=== PATIENT | female | born 1950 | race Caucasian/White ===

== ENCOUNTER → 2018-07-19 10:58 | Outpatient (BNVA) | payer MEDICARE, BC, SELFPAY | PROVIDERS: Visit Provider Orthopaedic Surgery | DX: M17.11 Unilateral primary osteoarthritis, right knee (principal); I10 Essential (primary) hypertension | CPT/HCPCS: 20610; 99211; 99213; J7325 ==

== ENCOUNTER → 2018-10-27 09:58 | Outpatient (BNVA) | payer MEDICARE, BC, SELFPAY | PROVIDERS: PCP Family Medicine; Referring Provider Family Medicine; Visit Provider Orthopaedic Surgery | DX: M17.11 Unilateral primary osteoarthritis, right knee (principal); I10 Essential (primary) hypertension | CPT/HCPCS: 20610; 99211; 99213; J1040 ==

== ENCOUNTER → 2019-01-26 09:57 | Outpatient (BNVA) | payer MEDICARE, BC, SELFPAY | PROVIDERS: PCP Family Medicine; Referring Provider Family Medicine; Visit Provider Orthopaedic Surgery | DX: M17.11 Unilateral primary osteoarthritis, right knee (principal) | CPT/HCPCS: 20610; 99211; 99212; J7325 ==

== ENCOUNTER 2019-02-21 01:43 | Outpatient (CLI) | payer MEDICARE, BC, SELFPAY ==
[2019-02-21 13:32] LABS: Abs Immature Grans 0.02 k/cumm (0.0-0.09); Absolute Basophil Count 0.03 k/cumm (0.0-0.2); Absolute Lymphocyte Count 1.96 k/cumm (1.2-3.4); Absolute Monocyte Count 0.49 k/cumm (0.11-0.7); Absolute Neutrophil Count 4.15 k/cumm (1.2-6.7); Basophils % 0.4; Eosinophils % 4.3; HCT 37.1 % (36.0-46.0); HGB 12.1 g/dL (12.0-15.5); Immature Grans % 0.3; Lymphocytes % 28.2; Mean Corp. HGB Concentration 32.6 g/dL (32.0-36.0); Mean Corpuscular Volume 92.1 fL (80-95); Mean Platelet Volume 9.4 fL (8.0-11.0); Monocytes % 7.1; Neutrophils % 59.7; Platelet Count 287 x1000/uL (130-400); RBC 4.03 m/cumm (4.00-5.20); White Blood Cell Count 6.95 k/cumm (4.4-10.8)
[2019-02-21 13:33] LABS: ALT 21 U/L (12-78); AST 15 U/L (15-37); Albumin 3.8 g/dL (3.4-5.0); Alkaline Phosphatase 68 U/L (46-116); Anion Gap 10.6 mmol/L (3-11); BUN 22 mg/dL (7-18); Bilirubin, Total 1.4 mg/dL (0.2-1.0); CO2 27.4 mmol/L (21.0-32.0); CREATININE 1.05 mg/dL (0.55-1.02); Calcium 9.1 mg/dL (8.5-10.1); Chloride 104 mmol/L (98-107); Cholesterol 208 mg/dL (50-200); Estimated GFR 52.28 (mL/min/1.73m2); Glucose 91 mg/dL (70-100); HDL Cholesterol 44 mg/dL (40-60); LDL CHOLESTEROL 137 mg/dL (<100); Potassium 3.5 mmol/L (3.5-5.1); Sodium 142 mmol/L (136-145); Total Protein 6.7 g/dL (6.4-8.2); Triglyceride 165 mg/dL (30-150)
== END 2019-02-21 02:03 ==
PROVIDERS: PCP Family Medicine; Visit Provider Family Medicine
DX: E78.5 Hyperlipidemia, unspecified (principal); I10 Essential (primary) hypertension
CPT/HCPCS: 36415; 80053; 80061; 83721; 85025

== ENCOUNTER 2019-02-22 01:17 | Outpatient (CLI) | payer MEDICARE, BC, SELFPAY ==
--- NOTE | 2019-02-22 12:49 | DI.US_ITS ---
SYMPTOMS/DIAGNOSIS: BILATERAL ADNEXAL MASSES ON CT, 04/14/17, PELVIC AND PERINEAL PAIN, BILATERAL CRAMPINESS X 3 MOS, S/P HYSTERECTOMY AND TUBAL LIGATION, HYPERLIPIDEMIA, R10.2 N94.9, E78.5 PELVIC ULTRASOUND: Transabdominal and transvaginal examination was performed. Comparison CT scan is 04/14/17. The patient is status post hysterectomy. In the right adnexa, there is a 6.7 x 4.7 x 4.6 cm lesion. The lesion appears multicystic. There does appear to be some internal debris. No internal blood flow is noted. In the left adnexa, there is a 3 x 3 x 3.1 cm complex lesion. The lesion is mostly cystic. No internal blood flow is appreciated. No free pelvic fluid or hydronephrosis is identified. IMPRESSION: Complex bilateral adnexal lesions. These may be ovarian in origin, but other cystic lesions cannot be excluded. An MRI of the pelvis with and without contrast is recommended for further evaluation.
== END 2019-02-22 01:37 ==
PROVIDERS: PCP Family Medicine; Visit Provider Family Medicine
DX: R10.2 Pelvic and perineal pain (principal); N94.9 Unspecified condition associated with female genital organs and menstrual cycle; N83.8 Other noninflammatory disorders of ovary, fallopian tube and broad ligament; Z90.710 Acquired absence of both cervix and uterus; Z98.51 Tubal ligation status
CPT/HCPCS: 76830; 76856

== ENCOUNTER → 2019-05-02 10:03 | Outpatient (BNVA) | payer MEDICARE, BC, SELFPAY | PROVIDERS: PCP Family Medicine; Referring Provider Family Medicine; Visit Provider Orthopaedic Surgery | DX: M17.11 Unilateral primary osteoarthritis, right knee (principal); I10 Essential (primary) hypertension | CPT/HCPCS: 20610; 99211; 99213; J1040 ==

== ENCOUNTER → 2019-07-31 09:52 | Outpatient (BNVA) | payer MEDICARE, BC, SELFPAY | PROVIDERS: PCP Family Medicine; Referring Provider Family Medicine; Visit Provider Student in an Organized Health Care Education/Training Program | DX: M17.12 Unilateral primary osteoarthritis, left knee (principal); M17.11 Unilateral primary osteoarthritis, right knee; I10 Essential (primary) hypertension | CPT/HCPCS: 20610; 99213; J7325 ==

== ENCOUNTER 2019-08-30 02:42 | Outpatient (CLI) | payer MEDICARE, BC, SELFPAY ==
[2019-08-30 13:11] LABS: ALT 20 U/L (14-59); Calculated LDL 116 mg/dL; Cholesterol 193 mg/dL (50-200); HDL Cholesterol 42 mg/dL (40-60); Triglyceride 175 mg/dL (30-150)
== END 2019-08-30 03:02 ==
PROVIDERS: PCP Family Medicine; Visit Provider Family Medicine
DX: I10 Essential (primary) hypertension (principal); E78.5 Hyperlipidemia, unspecified
CPT/HCPCS: 36415; 80061; 84460

== ENCOUNTER → 2019-11-06 09:25 | Outpatient (BNVA) | payer MEDICARE, BC, SELFPAY | PROVIDERS: PCP Family Medicine; Referring Provider Family Medicine; Visit Provider Student in an Organized Health Care Education/Training Program | DX: M17.12 Unilateral primary osteoarthritis, left knee (principal) | CPT/HCPCS: 99213 ==

== ENCOUNTER 2019-12-06 08:25 | Outpatient (CLI) | payer MEDICARE, BC, SELFPAY ==
--- NOTE | 2019-12-06 08:30 | DI.RAD_ITS ---
EXAM: XR STANDING ALIGNMENT INDICATION: R knee OA - TKA planning. COMPARISON: No exams were available for comparison TECHNIQUE: 2D digital imaging was performed. FINDINGS: The hip joint spaces are well maintained. There is mild acetabular spurring. There are severe degen erative changes of the knees, right greater than left. There is hardware in the left ankle. Venous varicosities are noted bilaterally, right greater than left. There is minimal leg length discrepancy , the left iliac crest projecting slightly higher than right. IMPRESSION: Degenerative changes both knees, right greater than left.
== END 2019-12-06 08:45 ==
PROVIDERS: PCP Family Medicine; Visit Provider Physician Assistant
DX: M17.0 Bilateral primary osteoarthritis of knee (principal); M21.70 Unequal limb length (acquired), unspecified site
CPT/HCPCS: 77073

== ENCOUNTER 2019-12-06 08:54 | Outpatient (CLI) | payer MEDICARE, BC, SELFPAY ==
[2019-12-06 10:14] LABS: HCT 40.3 % (36.0-46.0); HGB 13.2 g/dL (12.0-15.5); Mean Corp. HGB Concentration 32.8 g/dL (32.0-36.0); Mean Corpuscular Hemoglobin 29.9 pg (27.0-33.0); Mean Corpuscular Volume 91.4 fL (80-95); Mean Platelet Volume 8.9 fL (8.0-11.0); Platelet Count 315 x1000/uL (130-400); RBC 4.41 m/cumm (4.00-5.20); RBC Distribution Width 13.6 % (11.7-14.6); White Blood Cell Count 8.81 k/cumm (4.4-10.8)
[2019-12-06 11:00] LABS: Anion Gap 11.1 mmol/L (3-11); BUN 19 mg/dL (7-18); CO2 27.9 mmol/L (21.0-32.0); CREATININE 1.13 mg/dL (0.55-1.02); Calcium 8.9 mg/dL (8.5-10.1); Chloride 104 mmol/L (98-107); Estimated GFR 47.88 (mL/min/1.73m2); Glucose 92 mg/dL (74-106); Sodium 143 mmol/L (136-145)
== END 2019-12-06 09:14 ==
PROVIDERS: PCP Family Medicine; Visit Provider Student in an Organized Health Care Education/Training Program
DX: M25.561 Pain in right knee (principal); M17.11 Unilateral primary osteoarthritis, right knee; Z01.818 Encounter for other preprocedural examination; Z01.812 Encounter for preprocedural laboratory examination
CPT/HCPCS: 36415; 80048; 85027; 77073

== ENCOUNTER 2019-12-12 10:20 | Observation (INO) | payer MEDICARE, BC, SELFPAY ==
[2019-12-06 09:09] VITALS: BP 118/78; PULSE 90; RESP 17; TEMP 36.8; O2SAT 98
[2019-12-12] VITALS (10 sets, daily range): BP systolic 115–149; BP diastolic 63–91; PULSE 78–94; RESP 14–19; TEMP 36.4–36.7; O2SAT 92–100
[2019-12-12] MEDS: Acetaminophen 500 MG TAB 1000 MG PO ×2 (11:12→19:38)
[2019-12-12] MEDS: Gabapentin 300 MG CAP PO ×2 (11:13→22:20)
[2019-12-12] MEDS: Lactated Ringers 1,000 ML 80 ML IV ×2 (11:20→14:50)
[2019-12-12] MEDS: ceFAZolin 2 GM/50 ML BAG IVPB (11:55)
[2019-12-12] MEDS: Bupivacaine 0.25% Pres-Free 30 ML VIAL (13:15)
[2019-12-12] MEDS: Normal Saline 20 ML VIAL (13:15)
[2019-12-12] MEDS: Ketorolac 30 MG/ML VIAL (13:15)
--- NOTE | 2019-12-12 14:24 | ROE_ITS ---
Date of service: 12/12/19 Time of Service: 14:24 Operative Note Operative Note DATE OF PROCEDURE: 12/12/19 PRE-OP DIAGNOSIS: Right Knee Osteoarthritis POST-OP DIAGNOSIS: same PROCEDURE: Right Total Knee Replacement SURGEON: Richardson Steven CURRICULUM ADVISORY TEACHER: Timmy Gilliam CURRICULUM ADVISORY TEACHER: Leonarda Rm ANESTHESIA: regional and spinal ESTIMATED BLOOD LOSS: 300 PATHOLOGY: none sent TOURNIQUET TIME: 41 COMPLICATIONS: None Patient was transported to: PACU Patient's condition: stable Implants: 1. Depuy Attune Posterior Stabilized Femoral Component, Size 5 Narrow 2. Depuy Attune Fixed Platform Tibial Component, Size 3 3. Depuy Attune 5x7 Fixed, Stabilized Poly 4. Depuy Attune Patellar Component, Size 35 Indications: I have seen Jennifer in clinic for symptoms of RIGHT knee arthritis, confirmed with radiographic findings. Jennifer has exhausted nonoperative methods a nd was having significant limitations in daily function and desired better function and less pain. I discussed the technical details of a knee replacement. I explained the risks of the procedure to include, but not limited to, bleeding, infection, pain, stiffness, fracture, damage to nerves and vessels, damage to muscles and tendons, loosening, need for repeat procedure, blood clot and cardiopulmonary demise. Despite these risks, Jennifer elected to proceed. Findings: There was significant signs of arthritis throughout the knee. The lateral femur was hypoplastic. Procedure Description: Jennifer was greeted in the preoperative holding area where the correct side was identified and marked. The consent was reviewed with the patient and signed. The history and physical was updated. All questions were answered. Preoperative mediacations were administered: Acetaminophen 1000mg, Celebrex 400mg, and Gabapentin 300mg. An adductor canal block was then administered by the anesthesia team in the PACU. Jennifer was taken back to the operating room. A spinal anesthestic was then administered. The patient was placed into the supine position on the operating room table. A nonsterile tourniquet was placed high onto the leg but only used for cementing. Posts were placed for positioning during the procedure. All bony prominences were well padded. Prophylactic antibiotics in the form of Cefazolin were administered. 1g of Tranxemic Acid was given intravenously within 30 minutes of incision. The right leg was then prepped with Chloraprep and draped in a standard fashion with impervious stockinette. A second prep with Chloraprep was performed prior to application of Iodine impregnated skin pr otection. A timeout to confirm correct identity, side and site, procedure, allergies, anesthesia, and medical concerns was performed. With the knee in some flexion, a midline incision was made overlying the knee. Full thickness skin flaps were raised once the extensor mechanism was encountered. These were raised medially and laterally. Any bleeding was controlled with electrocautery. Once the extensor mechanism was fully exposed, a medial parapatellar arthrotomy was performed in a flexed position. All bleeding from the arthrotomy and the geniculate arteries was coagulated. A medial subperiosteal peel was performed with electrocautery to the midcoronal plane. The fat pad was removed while keeping the patellar tendon protected. The anterior distal femur synovium was removed for later visualization. The ACL and PCL were resected and the anterior horn of the lateral meniscus was transected. The knee was then flexed with the patella everted. Large osteophytes from the tibia were removed. Large osteophytes from the femur were removed. Using a step drill, and based on preoperative templating, the femoral canal was entered. This was done with a step drill without any difficulty. The intramedullary distal femoral cut guide was inserted, set to a 5 degree valgus cut and 9mm cut thickness. There was some hypoplasia of the lateral femoral condyle and any remnant cartilage of the medial femoral condyle was removed for appropriate thickness. The distal femoral cut guide was then held in position and pinned. With the soft tissues protected, the distal cut was performed. This was passed over a few times to ensure a planar cut. I then turned attention to the tibia. The extramedullary guide was placed onto the leg. The distal aspect was slid medial to adjust for position of center of ankle and stay in line with shaft of the tibia. Approximately 3-5 degrees of posterior slope was kept in the proximal cutting guide. The center of the guide was aligned with the PCL. The stylus was used to assess cut thickness. The medial side, most involved side, was set for a 4mm cut which corresponded to 8mm laterally. This was then held in position and pinned into place with 2 additional pins and a cross pin for stability. The medial and lateral collateral ligaments were protected and the cut was performed. With this completed, it was assessed and noted to be of appropriate dimensions. The guide was removed. A spacer block was inserted and the knee was brought into extension. The 6mm spacer block provided full extension, without hyperextension and with stability of both the medial and lateral collateral ligaments was assessed. The pins from the femur and the tibia were then removed. The distal femur was then sized. The anterior stylus was placed onto the lateral ridge of the anterior femur. This indicated a size 5 femur. The external rotation of the guide was adjusted to 3 degrees to match the epicondylar axis, perpendicular to Rosebud?s line. The 4-in-1 cutting guide was the placed. The posterior medial femur cut was evaluated and appeared of good thickness. The spacer block was inserted underneath the cutting guide and stability was confirmed in 90 degrees of flexion. An mayito wing was used to confirm appropriate position of the anterior cut to avoid notching. This cutting guide was ensured to be flush on the cut surface and then pinned into place with headed pins. While protecting the soft tissues, quad tendon, and collateral ligaments, the anterior and posterior cuts were performed with a saw. The central two pins were removed and the posterior and anterior chamfers were cut next. The notch-cutting guide was placed. This was pinned to lateralize the femoral component as much as possible while keeping it flush on the cut surface. This was then pinned into position. A reciprocating saw was used to make the notch cut. A rasp smoothed the cut surfaces. A trial posterior stabilized femoral component was then inserted, impacted down to the cut surfaces, and the lug holes were drilled. A provisional trial tibial component was placed and the knee was brought through range of motion. There was noted to be excellent extension and flexion. There was no significant instability. The patella was tracking without thumbs. The tibial cut surface was fully exposed. The medial and lateral menisci were removed. The tibia was then sized as a 3. The tibia had been previously marked during trialing to correspond to the center of the tibial component to help with rotation. The trial was aligned to this timmy, approximately rotated to the medial 1/3rd of the tibial tubercle. The trial was pinned into place. The tibia was prepared with a reamer and a keel punch. The knee was then brought into extension and the patella was measured as 23mm. Using the patellar clamp and cut guide, this was resected to a flat surface with at least 13mm of thickness remaining. The size 35 patella fit the best. This was oriented and then clamped into position. The lugs were drilled. The trial components were removed. The final components, except for the polyethylene were opened on the back table. The periosteal and capsular tissues, especially posteriorly, around the knee were then systematically injected with a periarticular cocktail consisting of 50cc 0.25% Marcaine, 30mg Ketorolac, 20cc of Exparal and 50cc of injectable saline. The tourniquet was then inflated to 275mmHg. The knee was thoroughly irrigated with a pulse lavage and dried. On the back table, with the implants opened, the cement was mixed. 2 batches of antibiotic laden cement were prepared with vacuum assistance. After the cement was ready a small amount was placed on to the back side of the tibial component at the keel. A small amount was placed onto the posterior flange of the femur. Cement was manual pressurized and impregnated into the cut surface of the tibia. The tibial component was then inserted into the cut surface and impacted into position. Excess cement was removed and the component was reimpacted. Again, excess cement was removed and our attention was then turned to the femur. The femoral cut surface was once again dried and cement was manually impacted into the cut surface. The femoral component was lined with the lug holes and impacted. Excess cement was removed. It was ensured to be down against the cut surface. The trial polyethylene was then inserted and the leg was brought out into full extension for the duration of the cement curing process, approximately 15min. The cement seemed to be setting up faster than usual, so I aborted cementing the patella with the initial batch and prepared a second batch of cement for the patella. Cement was then manually impacted into the cut surface of the patella and the patellar button was clamped into position and held. During the cement curing process attention was turned to the gutters of the knee and for all interfaces for any excess cement. While the cement was hardening, the knee was irrigated with Irrisept chlorhexadine solution. This was allowed to sit in the knee for 3 minutes. After the cement had finally cured, approximately 15min, the clamp was removed from the patella and the knee was taken through range of motion. A size 7mm polyethylene component provided the best range of motion and stability with less than 2mm gapping with medial and lateral stress and full extension without significant hyperextension. The patella was tracking with a no-thumbs technique. The trial poly was removed and once again the knee was checked for any loose, excess, or errant cement. The poly component was then inserted and impacted into position after cleaning and drying the tibial tray. The capsule was then reapproximated with a No. 1 Vicryl at multiple locations. The capsule was finally closed with a No. 2 Stratafix, barbed suture. The tourniquet was then released and the arthrotomy appeared watertight without significant bleeding. The second dosing of 1g TXA was started. Deep tissues were then reapproximated with 0 Vicryl and 2-0 Vicryl. The skin was closed with a running 3-0 Monocryl in a subcuticular fashion. This was reinforced with skin glue. A Mepilex silver dressing was applied along with a [id number] CHAVO wrap. A CryoCuff was applied. Jennifer was transferred to the hospital bed without difficulty an suffering no apparent complication. Jennifer has a good prognosis. Physical therapy will start today and without restrictions, weight-bearing as tolerated. Aspirin 81mg BID will be used for DVT prophylaxis.
[2019-12-12] MEDS: oxyCODONE 5 MG TAB PO (16:33)
--- NOTE | 2019-12-12 16:39 | IN_ITS ---
Date of service: 12/12/19 Time of Service: 15:55 PT Notes Physical Therapy Inpatient Initial Evaluation Date: 12/12/2019 Referring Doctor: Richardson Steven MD PT Orders: PT CONSULT: Status post Ortho surgery. Status post right TKA. Precautions: Fall. Standard. WBAT on right LE. Patient Profile/Admitting Diagnosis: Patient is a 69-year-old female with primary unilateral osteoarthritis of right knee status post right knee total arthroplasty on postoperative day 0. PMHX: Medical History Depressive disorder Diverticulosis Essential hypertension [place] syndrome Irritable colon Surgical History Abdominal hysterectomy Bilateral salpingectomy with oophorectomy Colonoscopy - IV Sedation (05/27/16) EGD - MAC (03/17/18) Extraction of cataract [facility]; 03/07/17 & 03/28/17 Fracture, Closed Treatment (~04/1998) leg Social History/Home Situation: Patient lives with in a private home with 4 steps to enter with a rail on both sides. She has another set of 15 steps down to their bedroom with a rail on the left going down. Patient is independent with all activities of daily living with out an assistive ambulatory device nor adaptive equipment. Equipment Owned/DME: Front-wheeled walker Subjective: Patient reports a dull ache on the right knee. She denies any numbness or tingling from her gluteal area down to the soles of her feet at time of evaluation. She denies any lightheadedness, headache, chest pain, and dizziness throughout all positional changes and gait activity. She states that she has not had any falls for the past 12 months. Objective: General Observation: Kincaid catheter in place. IV in the left UE. CHAVO wraps on left lower extremity. Mental Status: Alert and oriented x4 Pain: 5/10 on her right knee at rest and with movement ROM: Right Upper Extremity: Shoulder Flexion WFL. Shoulder abduction WFL. Elbow flexion WFL. Wrist flexion WFL. Opening and closing of hand WFL. Left Upper Extremity: Shoulder Flexion WFL. Shoulder abduction WFL. Elbow flexion WFL. Wrist flexion WFL. Opening and closing of hand WFL. Right Lower Extremity: Hip flexion WFL. Hip abduction WFL. Knee flexion -21 through 110 degrees. Knee extension -21 degrees ankle dorsiflexion WFL. Ankle plantarflexion WFL. Left Lower Extremity: Hip flexion WFL. Hip abduction WFL. Knee flexion WFL. Ankle dorsiflexion WFL. Ankle plantarflexion WFL. Strength: Right Upper Extremity: Shoulder flexors 5/5. Shoulder abductors 5/5. Elbow flexors 5/5. Elbow extensors 5/5. Rod Bending Machine Operator strong. Left Upper Extremity: Shoulder flexors 5/5. Shoulder abductors 5/5. Elbow flexors 5/5. Elbow extensors 5/5. Rod Bending Machine Operator strong. Right Lower Extremity: Hip flexors 4/5. Hip abductors 4/5. Knee flexors 3-/5. Knee extensors 3-/5. Ankle dorsiflexors 5/5. Ankle plantarflexors 5/5. Left Lower Extremity:Hip flexors 5/5. Hip abductors 5/5. Knee flexors 5/5. Knee extensors 5/5. Ankle dorsiflexors 5/5. Ankle plantarflexors 5/5. Sensation: Intact as to pain and pressure on bilateral lower extremities. Bed Mobility/Transfers: Rolling SBA Supine to sit SBA Sit to supine SBA Sit to stand CGA Stand to sit CGA Bed to chair CGA Chair to bed CGA Gait: Patient tolerated level surface ambulation of 200 feet using front wheeled walker with WBAT on the right LE requiring CGA assist of PT as well as wheelchair follow and IV pole management of FINISHED CLOTH CHECKER. Reciprocal step to gait pattern observed. Decreased rachele. Reported 5/10 pain on the right knee with weight bearing. Balance: Static Sitting: Normal Dynamic Sitting: Normal Static Standing: Fair Dynamic Standing: Fair Special Tests: Mobility Limitations Standardized Measure [facility]-PAC 6 clicks Basic Mobility Inpatient Short Form: Raw Score: 20 CMS Score: 36% deficit Informed Consent/Education: Patient instructed in purpose of PT consult and plan of care. Patient was also educated on seated muscle setting exercises for bilateral gluteals and bilateral quadriceps as well as ankle pumping and heel slides. Assessment: Patient presenting with functional mobility decline along with impairment level findings and functional deficits as listed below. Patient is a 69-year-old female with primary unilateral osteoarthritis of right knee status post right knee total arthroplasty on postoperative day 0. Patient presents with clinical signs and symptoms consistent with current/admitting diagnoses that have resulted to mobility limitations, gait instability, generalized weakness, and impairment of motor control as demonstrated by the following impairment level findings: 1. Decreased strength to right LE major muscle groups 2. Impaired standing balance 3. Impaired activity tolerance 4. Limitation of joint range of motion in right knee Impairments are contributing to the following functional limitations: 1. Dependent bed mobility skills 2. Increased dependence with transfers 3. Inability to safely ambulate without assistive device and physical assistance 4. Increase completion time for mobility ADL performance 5. Increased fall risk 6. Inability to negotiate steps alone safely Patient is assessed as a 26841 moderate complexity based on the following: History: 69-year-old female with past medical history, impairment level findings, functional limitations, and [facility] deficits score of 36% Examination: Demonstrable impairment in strength, balance, and range of motion with underlying impairments and functional limitations as documented above Presentation: Evolving Decision Makin moderate complexity Goals: Goals X1 week 1. Supine-Sit independent 2. Sit-Supine independent 3. Sit-Stand independent 4. Stand-Sit independent 5. Bed-Chair independent 6. Chair-Bed independent 7. Independent gait on level surface with use of least restrictive device for at least 300 feet without report of pain nor dyspnea 8. Independent stair negotiation while holding onto bilateral rails for at least 15 steps without report of pain nor dyspnea 9. Independent with home exercise program 10. Good static and dynamic standing balance/tolerance Plan of Care/Treatment Plan: 1-2x/day, 7 days/week x 1 week. Plan of care has been reviewed with the FINISHED CLOTH CHECKER providing the service under Physical Therapy direction. Initiate Physical Therapy intervention for strengthening, bed mobility, transfers, gait, stairs, balance training, use of assistive device. DISCHARGE RECOMMENDATIONS: May benefit from skilled physical therapy services according to orthopedic surgeon's timeline recommendations. Patient will be educated and trained on home exercise program per TKA exercise protocol in preparation for outpatient physical therapy services. TREATMENT CODE/TIME: 9716 2 x 30 minutes beginning at 15:55 PM. Thank you very much for this referral. Aditi Nunn PT, DPT, CLT [facility] [place], [place]
[2019-12-12] MEDS: ceFAZolin 1 GM/50 ML BAG IVPB (17:30)
[2019-12-12] MEDS: Aspirin E.C. 81 MG TABEC PO (19:38)
[2019-12-12] MEDS: Celecoxib 100 MG CAP PO (19:38)
[2019-12-13] MEDS: ceFAZolin 1 GM/50 ML BAG IVPB (02:24)
[2019-12-13] MEDS: oxyCODONE 5 MG TAB PO ×2 (02:31→08:32)
[2019-12-13] MEDS: Lactated Ringers 1,000 ML 80 ML IV (02:42)
[2019-12-13 03:26] VITALS: BP 133/81; PULSE 84; RESP 18; TEMP 36.2; O2SAT 96
[2019-12-13 07:36] VITALS: BP 128/77; PULSE 93; RESP 20; TEMP 36.6; O2SAT 93
--- NOTE | 2019-12-13 07:47 | W.PM.DS.N ---
Date of service: 12/13/19 Time of Service: 07:47 DS: Diagnosis Discharge Diagnosis (1) Primary osteoarthritis of right knee: Status: Chronic Discharge Plan Disposition Patient Disposition: HOME Condition: Good Discharge Details Reason For Visit: Right Knee DJD Admit Date/Time: 12/12/19 10:20 Admit Provider: Richardson Steven Attending Provider: Richardson Steven [facility] Course: Patient was admitted to the medical/surgical floor following the procedure. It was tolerated well without any notable medical, surgical, or anesthetic complications. Mobilization began postoperatively. The watts catheter was removed and voiding spontaneously. Vitals were stable. Physical therapy worked with the patient and was cleared for discharge home. No acute medical issues. Home Meds and New Rx's Prescriptions: New aspirin 81 mg tablet,delayed release (DR/EC) 81 mg PO BID Qty: 60 RF: 0 acetaminophen 500 mg tablet 1,000 mg PO Q8H PRN (Reason: pain) Qty: 90 RF: 3 oxycodone 5 mg tablet 5 mg PO Q4H Qty: 15 RF: 0 gabapentin 300 mg capsule 300 mg PO QHS Qty: 7 RF: 0 celecoxib 100 mg capsule 100 mg PO BID Qty: 60 RF: 0 Continued cetirizine 10 mg tablet 10 mg PO DAILY PRN (Reason: allergy symptoms) Qty: 90 RF: 3 bupropion HCl [Wellbutrin XL] 150 mg tablet extended release 24 hr 150 mg PO QAM Qty: 90 RF: 3 ranitidine HCl 300 mg capsule 300 mg PO HS Qty: 90 RF: 3 Shingrix gE Antigen Component 50 mcg suspension for reconstitution 50 mcg IM ONCE Qty: 1 RF: 0 GLUCOS-CHOND 500 COMPLEX CP 1 EACH capsule 1 ea PO DAILY RF: 0 estradiol [Estrace] 42.5 GM cream 1 g VG 2 x a week PRNQty: 1 RF: 3 simvastatin 10 mg tablet 10 mg PO DAILY Qty: 90 RF: 3 losartan-hydrochlorothiazide [Hyzaar] 100-25 mg tablet 1 tab PO DAILY Qty: 90 RF: 4 amlodipine 5 mg tablet 5 mg PO DAILY Qty: 90 RF: 3 potassium chloride 20 mEq tablet,ER particles/crystals 20 meq PO DAILY Qty: 90 RF: 3 diphenoxylate-atropine [Lomotil] 1 EACH tablet 1 tab PO Q6H PRN PRNRF: 0 fluticasone propionate [Flonase Allergy Relief] 50 mcg/actuation spray,suspension 2 spray SCOTT DAILY PRNRF: 0 Discontinued Shingrix Adjuvant Component-PF Suspension 0.5 ml IM ONCE Qty: 0.5 RF: 0 acetaminophen [Tylenol Extra Strength] 500 mg Tablet 1,000 mg PO Q6H PRNRF: 0 Discharge Instructions Additional Instructions: Dr. Steven?s Total Knee Discharge Instructions Activity: The most important activity is to walk. You should try to take short walks a few times a day. It is important that when resting you work on keeping the knee straight. Avoid putting a pillow behind the knee as this will encourage flexion. Work on range of motion exercises as provided by Physical Therapy. - Start outpatient physical therapy within 2 weeks. - You should wear the LASHELL hose on both legs for 2 weeks. Dressing: Keep the surgical dressing in place for at least one week. After the first week it may be removed and replace with light gauze and tape or nothing. It may get wet after 3 days but avoid soaking the dressing. If it gets wet, just lightly pat dry. Medications: - You should take Tylenol and anti-inflammatory Celebrex as your primary pain control medications - You have been prescribed a stronger pain medication Oxycodone for breakthrough pain, take as needed as prescribed. - Continue your stomach acid reduction agent Ranitidine to help reduce stomach acid and reflux. - You will be taking Aspirin 81mg twice a day for DVT prevention unless instructed otherwise. - If you have constipation you should take Colace or Miralax (both [id number]). It takes most people 3-4 days to have a bowel movement. Follow-up: 2 weeks Referrals: Richardson Steven MD [ [facility]FF [facility]YSICIAN] - [facility] [Provider Group] - 12/27/19 (s/p R TKA. Start PT within 2 weeks.) Activity:: Activity as Tolerated Equipment/Supplies:: Walker Diet:: As Tolerated Discharge Orders Discharge Orders: Discharge Order (Routine); Ordered 12/13/19 Ordered By: Richardson Steven DS: Summary Status at Discharge Functional status at discharge: uses cane/walker Overall status at discharge: patient is progressing back to baseline Mental Status: mental status grossly normal Speech and Movement: speech and movement normal Mood: congruent mood Affect: normal affect Exam Psych Mental Status: mental status grossly normal Speech and Movement: speech and movement normal Mood: congruent mood Affect: normal affect DS: Data Vitals/I&O Vitals and I&O: Vital Signs Temperature 36.6 C 12/13/19 07:36 Temperature Source Tympanic 12/13/19 07:36 Pulse 93 H 12/13/19 07:36 Pulse Rhythm Regular 12/13/19 04:00 Respiratory Rate 20 12/13/19 07:36 Respiratory Effort Non-Labored 12/13/19 04:00 Respiratory Depth Normal 12/13/19 04:00 Respiratory Pattern Normal 12/13/19 04:00 Blood Pressure 128/77 12/13/19 07:36 Pulse Oximetry 93 L 12/13/19 07:36 Respiratory End-tidal CO2 32 12/12/19 15:06 Oxygen Delivery Method Room Air 12/13/19 07:36 Oxygen Flow Rate 0 12/13/19 07:36 Pain Level 5 12/13/19 07:36 Intake & Output 12/12/19 12/12/19 12/13/19 11:59 23:59 11:59 Intake Total 1692.667 / 3154.833 2925.333 / 1959.333 Output Total 1300 / 1300 450 / 450 Balance 392.667 / 794.929 2448.333 / 1509.333 Weight 93.8 kg 93.8 kg Intake: IV 1092.667 / 7133.447 8986.333 / 1959.333 Oral 600 / 600 Output: Urine 1000 / 1000 450 / 450 Estimated Blood Loss 300 / 300 Other: Urine Color Yellow Yellow Urine Appearance Clear Clear Urine Odor Normal Normal Emesis Description None Voiding Methods Toilet Toilet [facility] Medical History Depressive disorder seasonal Diverticulosis Essential hypertension [place] syndrome Irritable colon Surgical History Abdominal hysterectomy Bilateral salpingectomy with oophorectomy Colonoscopy - IV Sedation (05/27/16) EGD - MAC (03/17/18) Extraction of cataract [facility]; 03/07/17 & 03/28/17 Fracture, Closed Treatment (~04/1998) ORIF left ankle Hx of tonsillectomy (Chronic) Family History Mother , 76 No problems noted. Father , 77 Bone cancer Prostate cancer Sister No problems noted. Brother No problems noted. Maternal Grandfather , 71 No problems noted. Paternal Grandfather , 79 Heart disease Maternal Grandmother , 88 No problems noted. Paternal Grandmother , 84 Colon cancer Brother No problems noted. Brother Essential hypertension Brother No problems noted. Son Essential hypertension Hyperlipidemia Son Essential hypertension Hyperlipidemia Daughter No problems noted. FAMILY HISTORY [place] disease Deafness Social History Smoking/Tobacco Use Status: Never Alcohol Intake: current Alcohol Intake frequency: a few times a month Alcohol type: wine Drug use: Never Substance use type: does not use Caregiver/Support person: No Household members: spouse Housing: house Communication Needs: None Do you need help understanding health information?: Never Pets and animals: Yes Pets and animals: dog(s) Sexually active: Yes Do you think of yourself as: straight/heterosexual Current gender identity: female What is your relationship status?: How often do you talk on the phone with friends or family?: three or more times per week How often do you get together with friends or relatives?: once per week How often do you attend methodist or gnosticist services?: decline to answer Do you belong to any clubs or organized social groups?: no Panel score (0-1 are the most socially isolated patients): 2 What type of physical activity do you participate in: none Neisha/Cheondoism: L[employer] Day Special neisha needs: No Seatbelt use: always Helmet use: Yes Helmet use: sometimes Drive intox or ride w/intox lumber driver: No
[2019-12-13] MEDS: Normal Saline Flush 10 ML SYR IV (08:22)
[2019-12-13] MEDS: Simvastatin 10 MG TAB PO (08:23)
[2019-12-13] MEDS: buPROPion-XL 150 MG TABCR PO (08:23)
[2019-12-13] MEDS: Celecoxib 100 MG CAP PO (08:23)
[2019-12-13] MEDS: amLODIPine 5 MG TAB PO (08:23)
[2019-12-13] MEDS: hydroCHLOROthiazide 25 MG TAB PO (08:23)
[2019-12-13] MEDS: Losartan 50 MG TAB 100 MG PO (08:23)
[2019-12-13] MEDS: Aspirin E.C. 81 MG TABEC PO (08:23)
[2019-12-13] MEDS: Potassium Chloride 20 MEQ TABCR PO (08:23)
[2019-12-13] MEDS: Acetaminophen 500 MG TAB 1000 MG PO (08:24)
[2019-12-13 11:15] VITALS: BP 121/76; PULSE 89; RESP 20; TEMP 36.7; O2SAT 97
--- NOTE | 2019-12-13 12:01 | PT.INTREAT ---
Date of service: 12/13/19 Time of Service: 12:01 PT Notes Visit Reasons: Right Knee DJD 12/13/2019 SUBJECTIVE: Rosanna noting more discomfort today verse yesterday. She feels stiff. She also complains of nausea during treatment and being hot. OBJECTIVE: Pt seated in her recliner. Agreeable to PT treatment. TRANSFERS Sit to stand: S Stand to sit: S GAIT Device: FWW Weight bearing: AT R Assist: SBA Distance : 250' Deviation: Step to pattern, progressing to step through. Requires several stand rest breaks. STAIRS: Up and down 3-4 steps, 2-6, 2 rails, step to pattern, SBA. THEREX: Review HEP for glut and quad sets, ROM activities, SLR. Pt requires some assist for SLR today due to increase in pain. ASSESSMENT: Pt does require to lie down in the middle of treatment today due to her nausea. Her vitals are taken and WNL. Nursing aware of pt's situation. Pt tolerates transfers, stairs and straight plane ambulation well without concerns. Plan: Pt to be discharged home today. See discharge summary for details. Treatment time: 30 minutes [id number], [id number] Janel Stewart PTA
--- NOTE | 2019-12-13 12:46 | PT.INDS ---
Date of service: 12/13/19 Time of Service: 12:46 PT Notes Visit Reasons: Right Knee DJD Physical Therapy Inpatient Discharge Summary Date: 12/12/2019 Dates of service: 12/12/2019 through 12/13/2019 This is a clinical summary of care provided on the duration of dates listed above. No charge was made in the completion of this documentation. Referring Doctor: Richardson Steven MD PT Orders: PT CONSULT: Status post Ortho surgery. Status post right TKA. Precautions: Fall. Standard. WBAT on right LE. Patient Profile/Admitting Diagnosis: Patient is a 69-year-old female with primary unilateral osteoarthritis of right knee status post right knee total arthroplasty on postoperative day 1. PMHX: Medical History Depressive disorder Diverticulosis Essential hypertension [place] syndrome Irritable colon Surgical History Abdominal hysterectomy Bilateral salpingectomy with oophorectomy Colonoscopy - IV Sedation (05/27/16) EGD - MAC (03/17/18) Extraction of cataract [facility]; 03/07/17 & 03/28/17 Fracture, Closed Treatment (~04/1998) leg Social History/Home Situation: Patient lives with in a private home with 4 steps to enter with a rail on both sides. She has another set of 15 steps down to their bedroom with a rail on the left going down. Patient is independent with all activities of daily living with out an assistive ambulatory device nor adaptive equipment. Equipment Owned/DME: Front-wheeled walker Subjective: NT Objective: General Observation: Kincaid catheter in place. IV in the left UE. CHAVO wraps on left lower extremity. Mental Status: Alert and oriented x4 Pain: 5/10 on her right knee at rest and with movement ROM: Right Upper Extremity: Shoulder Flexion WFL. Shoulder abduction WFL. Elbow flexion WFL. Wrist flexion WFL. Opening and closing of hand WFL. Left Upper Extremity: Shoulder Flexion WFL. Shoulder abduction WFL. Elbow flexion WFL. Wrist flexion WFL. Opening and closing of hand WFL. Right Lower Extremity: Hip flexion WFL. Hip abduction WFL. Knee flexion -21 through 110 degrees. Knee extension -21 degrees ankle dorsiflexion WFL. Ankle plantarflexion WFL. Left Lower Extremity: Hip flexion WFL. Hip abduction WFL. Knee flexion WFL. Ankle dorsiflexion WFL. Ankle plantarflexion WFL. Strength: Right Upper Extremity: Shoulder flexors 5/5. Shoulder abductors 5/5. Elbow flexors 5/5. Elbow extensors 5/5. [employer] strong. Left Upper Extremity: Shoulder flexors 5/5. Shoulder abductors 5/5. Elbow flexors 5/5. Elbow extensors 5/5. [employer] strong. Right Lower Extremity: Hip flexors 4/5. Hip abductors 4/5. Knee flexors 3-/5. Knee extensors 3-/5. Ankle dorsiflexors 5/5. Ankle plantarflexors 5/5. Left Lower Extremity:Hip flexors 5/5. Hip abductors 5/5. Knee flexors 5/5. Knee extensors 5/5. Ankle dorsiflexors 5/5. Ankle plantarflexors 5/5. Sensation: Intact as to pain and pressure on bilateral lower extremities. Bed Mobility/Transfers: Rolling supervision Supine to sit independent Sit to supine independent Sit to stand supervision Stand to sit supervision Bed to chair supervision Chair to bed supervision Gait: Patient tolerated level surface ambulation of 250 feet using front wheeled walker with WBAT on the right LE requiring CGA assist of PT as well as wheelchair follow and IV pole management of CUSTOMER INSIGHT ANALYST. Reciprocal step through gait pattern observed. Decreased rachele. Reported 5/10 pain on the right knee with weight bearing. Balance: Static Sitting: Normal Dynamic Sitting: Normal Static Standing: Fair Dynamic Standing: Fair Informed Consent/Education: Patient instructed in purpose of PT consult and plan of care. Patient was also educated on seated muscle setting exercises for bilateral gluteals and bilateral quadriceps as well as ankle pumping and heel slides. Assessment: Patient presenting with functional mobility decline along with impairment level findings and functional deficits as listed below. Patient is a 69-year-old female with primary unilateral osteoarthritis of right knee status post right knee total arthroplasty on postoperative day 1. Patient continues to present with clinical signs and symptoms consistent with current/admitting diagnoses that have resulted to mobility limitations, gait instability, generalized weakness, and impairment of motor control as demonstrated by the following impairment level findings: 1. Decreased strength to right LE major muscle groups 2. Impaired standing balance 3. Impaired activity tolerance 4. Limitation of joint range of motion in right knee Impairments continue to contribute to the following functional limitations: 1. Inability to safely ambulate without assistive device and physical assistance 2. Increase completion time for mobility ADL performance 3. Increased fall risk 4. Inability to negotiate steps alone safely Goals: Goals X1 week 1. Supine-Sit independent MET 2. Sit-Supine independent MET 3. Sit-Stand independent NOT MET 4. Stand-Sit independent NOT MET 5. Bed-Chair independent NOT MET 6. Chair-Bed independent NOT MET 7. Independent gait on level surface with use of least restrictive device for at least 300 feet without report of pain nor dyspnea NOT MET 8. Independent stair negotiation while holding onto bilateral rails for at least 15 steps without report of pain nor dyspnea NOT MET 9. Independent with home exercise program NOT MET 10. Good static and dynamic standing balance/tolerance NOT MET DISCHARGE RECOMMENDATIONS: May benefit from skilled physical therapy services according to orthopedic surgeon's timeline recommendations. Patient will be educated and trained on home exercise program per TKA exercise protocol in preparation for outpatient physical therapy services. TREATMENT CODE/TIME: ABDULAZIZ Thank you very much for this referral. Aditi Nunn PT, DPT, CLT [facility] [place], [place]
== END 2019-12-13 12:00 | disposition home or self-care (01) ==
LOC: PDS 16:44 → MS 16:44
PROVIDERS: Admitting Provider Student in an Organized Health Care Education/Training Program; PCP Family Medicine; Visit Provider Student in an Organized Health Care Education/Training Program
PROC: 0SRC0J9 Replacement of Right Knee Joint with Synthetic Substitute, Cemented, Open Approach (ICD-10-PCS; CPT 27447; principal; 2019-12-12 13:15)
DX: M17.11 Unilateral primary osteoarthritis, right knee (principal); M25.561 Pain in right knee; Z96.651 Presence of right artificial knee joint; I10 Essential (primary) hypertension; K21.9 Gastro-esophageal reflux disease without esophagitis; F32.9 Major depressive disorder, single episode, unspecified; E78.5 Hyperlipidemia, unspecified
CPT/HCPCS: 27447; 76942; 97110; 97162; 97530; NC; G0378; J0690; J1885; J2001; J3010

== ENCOUNTER 2019-12-28 08:18 | Outpatient (CLI) | payer MEDICARE, BC, SELFPAY ==
--- NOTE | 2019-12-28 08:00 | DI.RAD_ITS ---
EXAM: XR STANDING ALIGNMENT CLINICAL HISTORY: 1ST POST OP. TECHNIQUE: 2D digital imaging was performed. COMPARISON: XR STANDING ALIGNMENT from 12/06/2019 FINDINGS: BONES: There are stable postsurgical changes of a right total knee replacement. There is a longitudi nal lucency seen in the lateral aspect of the distal right femoral metaphysis suspicious for a nondis placed fracture. The fracture appears to extend to the superior aspect of the femoral prosthetic com ponent. There are stable moderate degenerative changes of the left knee. There is again seen side p lates and screws in the distal left tibia and fibula. The right lower extremity measures 85.4 cm. Th e left lower extremity measures 86.8 cm. JOINTS: No dislocation present. SOFT TISSUE: Normal. IMPRESSION: 1. Right total knee replacement. 2. Findings suspicious for nondisplaced fracture involving the lateral aspect of the distal right fem oral metaphysis. 3. Degenerative changes seen in the left knee. Postsurgical changes seen in the left ankle. DATA REPOSITORY: RADIATION DOSE DELIVERED:
== END 2019-12-28 08:38 ==
PROVIDERS: PCP Family Medicine; Referring Provider Family Medicine; Visit Provider Student in an Organized Health Care Education/Training Program
DX: Z96.651 Presence of right artificial knee joint (principal); M17.12 Unilateral primary osteoarthritis, left knee; Z47.1 Aftercare following joint replacement surgery; M89.8X5 Other specified disorders of bone, thigh; M17.11 Unilateral primary osteoarthritis, right knee
CPT/HCPCS: 73560; 77073

== ENCOUNTER → 2020-01-25 08:54 | Outpatient (BNVA) | payer MEDICARE, BC, SELFPAY | PROVIDERS: PCP Family Medicine; Visit Provider Student in an Organized Health Care Education/Training Program | DX: Z96.659 Presence of unspecified artificial knee joint (principal); Z47.1 Aftercare following joint replacement surgery; Z96.651 Presence of right artificial knee joint; I10 Essential (primary) hypertension ==

== ENCOUNTER → 2020-03-07 10:26 | Outpatient (BNVA) | payer MEDICARE, BC, SELFPAY | PROVIDERS: PCP Family Medicine; Referring Provider Family Medicine; Visit Provider Student in an Organized Health Care Education/Training Program | DX: Z47.1 Aftercare following joint replacement surgery; Z96.651 Presence of right artificial knee joint; I10 Essential (primary) hypertension ==

== ENCOUNTER 2020-06-19 01:04 | Outpatient (CLI) | payer MEDICARE, BC, SELFPAY ==
--- NOTE | 2020-06-19 07:15 | DI.MAMMO_ITS ---
EXAM: MAMMO SCREENING CLINICAL HISTORY: screening,Z12.31 TECHNIQUE: Mammograms were interpreted according to the usual protocol including computer analysis w [employer] system, tomosynthesis and C-view imaging. COMPARISON: FINDINGS: Breasts are of moderate density with fairly symmetrical distribution of fibroglandular tissue. No do minant mass or clumped intramammary calcification is seen. Skin calcifications are noted in both sujey asts, most notably inferiorly in the central portion of the left breast, these appear to be associate d a skin excrescence. Examination is compared with previous examinations including January 2018 and ere has been no gross interval change appearance comparison previous studies. IMPRESSION: No specific evidence of malignancy at this time. Routine screening examinations are suggested at yea rly intervals in this age group according to the ACS ACR guidelines. BI-RADS Cat 1 - Negative Breast Density - Category B - Scattered areas of fibroglandular density
== END 2020-06-19 01:24 ==
PROVIDERS: PCP Family Medicine; Visit Provider Family Medicine
DX: Z12.31 Encounter for screening mammogram for malignant neoplasm of breast (principal); R92.2 Inconclusive mammogram
CPT/HCPCS: 77063; 77067

== ENCOUNTER 2020-12-13 10:07 | Outpatient (CLI) | payer MEDICARE, BC, SELFPAY ==
--- NOTE | 2020-12-13 09:00 | DI.RAD_ITS ---
EXAM: XR KNEE RT 2V AP,LAT INDICATION: f/u R TKA. COMPARISON: CR XR KNEE RT 1V from 12/28/2019 TECHNIQUE: 2D digital imaging was performed. FINDINGS: There has been no change in the right total knee prosthesis or appearance of the surrounding bone. V enous varicosities are noted in the medial soft tissues of the distal thigh. IMPRESSION: Stable appearance of knee prosthesis. DATA REPOSITORY: RADIATION DOSE DELIVERED:
== END 2020-12-13 10:08 | disposition home or self-care (01) ==
LOC: DIORS 10:07
PROVIDERS: PCP Family Medicine; Referring Provider Family Medicine; Visit Provider Student in an Organized Health Care Education/Training Program
DX: Z47.1 Aftercare following joint replacement surgery (principal); Z96.651 Presence of right artificial knee joint
CPT/HCPCS: 99213; 73560

== ENCOUNTER 2021-01-02 03:34 | Outpatient (CLI) | payer MEDICARE, BC, SELFPAY ==
[2021-01-02 12:20] LABS: CREATININE 1.2 mg/dL (0.55-1.02); Estimated GFR 44.54 (mL/min/1.73m2); Potassium 3.6 mmol/L (3.5-5.1)
== END 2021-01-02 03:35 | disposition home or self-care (01) ==
LOC: LBO 03:35
PROVIDERS: PCP Family Medicine; Visit Provider Family Medicine
DX: I10 Essential (primary) hypertension (principal)
CPT/HCPCS: 36415; 82565; 84132

== ENCOUNTER 2021-09-01 01:58 | Outpatient (CLI) | payer MEDICARE, BC, SELFPAY ==
[2021-09-01 13:16] LABS: Anion Gap 9.9 mmol/L (3-11); BUN 19 mg/dL (7-18); CO2 29.1 mmol/L (21.0-32.0); Calcium 9.3 mg/dL (8.5-10.1); Chloride 104 mmol/L (98-107); Estimated GFR 54.81 (mL/min/1.73m2); Glucose 89 mg/dL (74-106); Potassium 3.9 mmol/L (3.5-5.1); Sodium 143 mmol/L (136-145)
[2021-09-01 16:18] LABS: Rheumatoid Factor 14.4 IU/mL (<12.0)
== END 2021-09-01 01:59 | disposition home or self-care (01) ==
LOC: LOS 01:58
PROVIDERS: PCP Family Medicine; Visit Provider Family Medicine
DX: I10 Essential (primary) hypertension (principal); M19.041 Primary osteoarthritis, right hand; M19.042 Primary osteoarthritis, left hand
CPT/HCPCS: 36415; 80048; 86431

== ENCOUNTER 2022-04-05 22:09 | Emergency (ER) | payer MEDICARE, BC, SELFPAY ==
--- NOTE | 2022-04-05 22:00 | RT.EKG_ITS ---
APPROVED REPORT Exam: Resting ECG Reason for Exam: chest pain Patient Location: E HR:98 bpm ECG Measurements Heart Rate 98 AXIS OH 183 P 35 QRSd 93 QRS -16 QT 369 T 46 QTc 472 Conclusion Sinus rhythm...normal P axis, V-rate 60- 99 Probable LVH with secondary repol abnrm...multiple LVH criteria Normal [place] I have reviewed and interpreted ECG and agree with software generated interpretation.
--- NOTE | 2022-04-05 22:15 | DI.RAD_ITS ---
Exam(s) XR CHEST 2V PA LATERAL EXAM: XR CHEST 2V PA LATERAL CLINICAL HISTORY: chest pain TECHNIQUE: 2D digital imaging was performed. COMPARISON: No exams were available for comparison FINDINGS: MEDIASTINUM: Normal. HEART: Normal. PULMONARY VASCULATURE: Normal. LUNGS: Clear. PLEURAL SPACE: No pleural effusion or pneumothorax. BONE:Unremarkable for age. IMPRESSION: No acute abnormality. DATA REPOSITORY: RADIATION DOSE DELIVERED:
[2022-04-05 22:16] VITALS: BP 178/83; PULSE 104; RESP 14; TEMP 36.8; O2SAT 99
--- NOTE | 2022-04-05 22:31 | ED.GENADUL_ITS ---
Discharge Plan Disposition Patient Disposition: STILL A PATIENT Condition: Stable Discharge Details Primary Care Provider: Kae Bliss ED Provider: Hugo Moctezuma Home Meds and New Rx's Prescriptions: No Action amlodipine 5 mg tablet 5 mg PO DAILY Qty: 90 3RF diphenoxylate-atropine [Lomotil] 2.5-0.025 mg tablet 1 tab PO Q6H PRN PRN (Reason: diarrhea) Qty: 20 0RF losartan-hydrochlorothiazide [Hyzaar] 100-25 mg tablet 1 tab PO DAILY Qty: 90 4RF potassium chloride 20 mEq tablet,ER particles/crystals 20 meq PO DAILY Qty: 90 3RF simvastatin 10 mg tablet 10 mg PO DAILY Qty: 90 3RF famotidine 40 mg tablet 40 mg PO QHS Qty: 90 3RF bupropion HCl [Wellbutrin XL] 150 mg tablet extended release 24 hr 150 mg PO QAM Qty: 90 3RF Hold Instructions: winter use only hydrocortisone valerate 0.2 % ointment 1 applic topical BID PRN (Reason: skin irritation) Qty: 45 0RF Medical Decision Making This is a 71-year-old female, past medical history of hypertension, presenting to the ER for what she describes as indigestion in her chest, belching, a pressure in her upper back, intermittent over the past 2 days. She has taken antacids [id number] with mild relief. She states that she does get heartburn fairly frequently but it is not usually this severe and antacids typically takes away completely. She denies any history of cardiac disease or cardiac work-up including stress test or echocardiogram. She denies any abdominal pain, nausea or vomiting. There is no radiation of her symptoms down her arm or up her neck. Clinically patient appears well, nontoxic. She had mild hypertension and tachycardia in triage but during my evaluation these have both resolved. Plan is to provide a full dose aspirin and a GI cocktail, initiate cardiac work-up including a D-dimer, if dimer is positive will CT chest for further evaluation of PE and or potential dissection although low on my differential. Patient understands that at a minimum she will need to await a delta troponin and is agreeable to this. Initial laboratory values reveal no evidence of leukocytosis, her D-dimer is negative at 409, potassium 3.1, will provide 40 p.o. potassium. Her bilirubin is 1.2 but this appears to be at her baseline, she has no right upper quadrant pain, nausea or vomiting. LFTs otherwise unremarkable, lipase of 125. Given the D-dimer is abnormal, will not pursue CTA of the chest. Awaiting chest x- ray. Upon reevaluation patient reports that she is completely asymptomatic, remains hemodynamically stable. Awaiting delta troponin and chest x-ray. Medical Records Medical records reviewed: Yes I reviewed the patient's medical records. Lab Data Lab results reviewed: Yes I reviewed the patient's lab results. Labs: Laboratory Tests Range/Units 04/05/22 04/05/22 04/05/22 22:30 22:30 22:30 WBC (4.4-10.8) 10^3/uL 10.18 RBC (3.93-5.22) 10^6/uL 4.25 Hgb (11.2-15.7) g/dL 12.6 Hct (36.0-46.0) % 38.2 MCV (80-95) fL 90 MCH (27.0-33.0) pg 29.6 MCHC (32.0-36.0) % 33.0 RDW (11.7-14.6) % 12.9 Plt Count (130-400) 10^3/uL 258 MPV (8.0-11.0) fL 9.0 Immature Gran % 0.3 Neutrophils % 64.0 Lymphocytes % 24.5 Monocytes % 6.6 Eosinophils % 4.3 Basophils % 0.3 Nucleated RBC % (0.0-0.3) % 0.0 Absolute Neutrophils (1.2-6.7) 10^3/uL 6.52 Absolute Lymphocytes (1.2-3.4) 10^3/uL 2.49 Absolute Monocytes (0.1-0.8) 10^3/uL 0.67 Absolute Eosinophils (0.0-0.7) 10^3/uL 0.44 Absolute Basophils (0.0-0.2) 10^3/uL 0.03 PT (9.3-11.0) sec 9.6 INR (0.9-1.1) 1.0 APTT (21.0-27.5) sec 24.5 D-Dimer (<500) ng/mlFEU 409 Sodium (136-145) mmol/L 141 Potassium (3.5-5.1) mmol/L 3.1 L Chloride (98-107) mmol/L 103 Carbon Dioxide (21.0-32.0) mmol/L 30.6 Anion Gap (3-11) mmol/L 7.4 BUN (7-18) mg/dL 20 H Creatinine (0.55-1.02) mg/dL 1.0 Estimated GFR/1.73 m2 (mL/min/1.73m2) 54.81 Glucose (74-106) mg/dL 98 Calcium (8.5-10.1) mg/dL 9.3 Magnesium (1.8-2.4) mg/dL 2.0 Total Bilirubin (0.2-1.0) mg/dL 1.2 H AST (15-37) U/L 12 L ALT (14-59) U/L 19 Alkaline Phosphatase (46-116) U/L 72 Troponin I (<or=60) ng/L < 50 Total Protein (6.4-8.2) g/dL 7.3 Albumin (3.4-5.0) g/dL 3.9 Lipase (73-393) U/L 125 ECG Data Attestation: I personally reviewed and interpreted this ECG (s) as follows: Interpretation: Please see official report by Dr. Shine. Sinus rhythm, ventricular rate 98. Probable LVH, no STEMI HPI General Mode of arrival: ambulatory . Date/Time Provider Initiated Documentation: 04/05/22 22:17 . Limitations to Documentation: no limitations . Information obtained by: patient . History of Present Illness 71 year old F presents to the emergency department with the chief complaint of Chest discomfort, described as moderate, with intensity rated at 6. Quality is described as burning and aching, and is localized to the chest. Patient reports radiation to back (Upper). Patient started experiencing this day(s) (1) and it has been intermittent. No relieving factors improve symptom(s), No exacerbating factors reported . Patient notes other (Heartburn). Patient did receive the following treatments prior to arrival, other (Antacids) Related Data Home Medications Medication Instructions Recorded Confirmed bupropion HCl 150 mg 24 hr tablet, 150 mg PO QAM #90 tabs 08/19/21 03/13/22 extended release (Wellbutrin XL) amlodipine 5 mg tablet 5 mg PO DAILY #90 tab-caps 08/27/21 04/05/22 diphenoxylate-atropine 2.5 1 tab PO Q6H PRN PRN diarrhea #20 08/27/21 03/13/22 mg-0.025 mg tablet (Lomotil) tabs famotidine 40 mg tablet 40 mg PO QHS #90 tabs 08/27/21 04/05/22 losartan 100 1 tab PO DAILY #90 tab-caps 08/27/21 04/05/22 mg-hydrochlorothiazide 25 mg tablet (Hyzaar) potassium chloride 20 mEq 20 meq PO DAILY #90 tab-caps 08/27/21 04/05/22 tablet,extended release(part/cryst) simvastatin 10 mg tablet 10 mg PO DAILY #90 tab-caps 08/27/21 04/05/22 hydrocortisone valerate 0.2 % 1 applic topical BID PRN skin 11/17/21 03/13/22 topical ointment irritation #45 grams Previous Rx's Medication Instructions Recorded bupropion HCl 150 mg 24 hr tablet, 150 mg PO QAM #90 tabs 08/19/21 extended release (Wellbutrin XL) amlodipine 5 mg tablet 5 mg PO DAILY #90 tab-caps 08/27/21 diphenoxylate-atropine 2.5 1 tab PO Q6H PRN PRN diarrhea #20 08/27/21 mg-0.025 mg tablet (Lomotil) tabs famotidine 40 mg tablet 40 mg PO QHS #90 tabs 08/27/21 losartan 100 1 tab PO DAILY #90 tab-caps 08/27/21 mg-hydrochlorothiazide 25 mg tablet (Hyzaar) potassium chloride 20 mEq 20 meq PO DAILY #90 tab-caps 08/27/21 tablet,extended release(part/cryst) simvastatin 10 mg tablet 10 mg PO DAILY #90 tab-caps 08/27/21 hydrocortisone valerate 0.2 % 1 applic topical BID PRN skin 11/17/21 topical ointment irritation #45 grams Allergies Allergy/AdvReac Type Severity Reaction Status Date / Time CHAVO Inhibitors Allergy Intermediate Angioedema Verified 04/05/22 22:24 latex Allergy Intermediate Skin Rash Verified 04/05/22 22:24 caffeine AdvReac Mild Jittery Verified 04/05/22 22:24 ergotamine AdvReac Mild Nausea/Vomi Verified 04/05/22 22:24 ting ibuprofen AdvReac Mild Verified 04/05/22 22:24 morphine AdvReac Mild Nausea/vomi Verified 04/05/22 22:24 ting General Stated Complaint: Chest Pain HANNAH: 2 Review of Systems Constitutional Constitutional: Denies fatigue, Denies fever(s), Denies headache(s) and Denies weakness ENT Ears, Nose, Mouth, and Throat: Denies headache(s) and Denies neck pain Cardiovascular Cardiovascular: Reports chest pain, Denies dyspnea and Denies dyspnea on exertion Respiratory Respiratory: Denies cough, Denies dyspnea and Denies dyspnea on exertion Gastrointestinal Gastrointestinal: Denies abdominal pain, Denies nausea and Denies vomiting Genitourinary Genitourinary: Denies dysuria Musculoskeletal Musculoskeletal: Reports back pain and Denies neck pain Integumentary/Breasts Skin/Breast: Denies rash Neurologic Neurologic: Denies headache(s) and Denies weakness Endocrine Endocrine: Denies fatigue Hematologic/Lymphatic Hematologic/Lymphatic: Denies easy bleeding and Denies easy bruising PFSH All Active Problems Osteoarthritis of hands, bilateral (Acute) Essential hypertension (Acute) Hyperlipidemia (Acute) Increased BMI (Acute) GERD (gastroesophageal reflux disease) (Chronic) Medical History Adnexal mass Complex bilateral masses 07/21/19 [facility] [place] PATH REPORT; benign serous cystadenofibroma Chemical exposure (08/12/17) PCE/TCE - through work Diverticulosis of colon without diverticulitis Erosive gastritis (03/23/18) found incidentally, adv to not use ibuprofen/naproxen. 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 Father , 77 Bone cancer Prostate cancer Sister No problems noted. Brother No problems noted. Maternal Grandfather , 71 No problems noted. Paternal Grandfather , 79 Heart disease Maternal Grandmother , 88 No problems noted. Paternal Grandmother , 84 Colon cancer Brother No problems noted. Brother Essential hypertension Brother No problems noted. Son Essential hypertension Hyperlipidemia Son Essential hypertension Hyperlipidemia Daughter No problems noted. 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 Pets and animals: Yes Pets and animals: dog(s) Sexually active: Yes Do you think of yourself as: straight/heterosexual Current gender identity: female What is your relationship status?: How often do you talk on the phone with friends or family?: three or more times per week How often do you get together with friends or relatives?: once per week How often do you attend jew or jehovah's witness services?: decline to answer Do you belong to any clubs or organized social groups?: no Panel score (0-1 are the most socially isolated patients): 2 What type of physical activity do you participate in: none Neisha/Restorationist: Moravian Special neisha needs: No Seatbelt use: always Helmet use: Yes Helmet use: sometimes Drive intox or ride w/intox residential recycle driver: No Do you feel safe at home: Yes Do you feel safe in your relationship?: Yes Exam Const General: cooperative, healthy appearing, comfortable and no acute distress Orientation: alert and awake HENMT Head: normal to inspection, normocephalic and atraumatic Face and sinus: normal facial exam Mouth: moist mucous membranes Eyes General: appearance normal, both eyes and all related structures Conjunctivae: conjunctivae normal Neck Neck: normal visual inspection, full ROM, trachea midline, supple and nontender Chest Chest: normal inspection of the chest and normal palpation of entire chest wall Resp Effort & Inspection: normal respiratory effort and able to speak in complete sentences Auscultation: clear to auscultation bilaterally Cardio Rate: regular rate Rhythm: regular rhythm GI Palpation: soft, not firm, no guarding, no pulsatile masses and nontender Auscultation: normal bowel sounds Back/Spine/Pelvis Back: No no CVA tenderness and No back tenderness Skin General skin exam: no rashes or lesions noted Neuro General: patient alert, patient awake, moves all extremities and no focal motor deficits Cognition: normal cognition Speech: speech normal Gait: normal gait Motor: muscle tone normal throughout Sensory Exam: no sensory deficits noted Extrem General: normal to inspection, full ROM, capillary refill normal, no pedal edema and no calf tenderness Psych Appearance: grossly normal Mental Status: mental status grossly normal Course Vital Signs Vital signs: Vital Signs Temperature 36.8 C 04/05/22 22:16 Pulse 104 H 04/05/22 22:16 Respiratory Rate 14 04/05/22 22:16 Blood Pressure 178/83 H 04/05/22 22:16 Pulse Oximetry 99 04/05/22 22:16 Temperature 36.8 C 04/05/22 22:16 Pulse 104 H 04/05/22 22:16 Respiratory Rate 14 04/05/22 22:16 Respiratory Effort Non-Labored 04/05/22 22:21 Respiratory Depth Normal 04/05/22 22:21 Respiratory Pattern Normal 04/05/22 22:21 Blood Pressure 178/83 H 04/05/22 22:16 Blood Pressure Position Sitting 04/05/22 22:16 Pulse Oximetry 99 04/05/22 22:16 Oxygen Delivery Method Room Air 04/05/22 22:16 Oxygen Flow Rate 0 04/05/22 22:16 Pain Level 4 04/05/22 22:21 Sign Out Sign Out Data: Sign Out Comment: Chest indigestion and upper back that began yesterday. Initial work-up including troponin and D-dimer unremarkable. Patient received full dose aspirin and a GI cocktail, is asymptomatic. No history of cardiac disease. Never had a stress test or echocardiogram. Awaiting delta troponin, chest x-ray, reevaluation. Last updated by Hugo Moctezuma PA at 04/05/22 23:27
[2022-04-05 22:43] LABS: Abs Immature Grans 0.03 10^3/uL (0.0-0.06); Absolute Basophil Count 0.03 10^3/uL (0.0-0.2); Absolute Eosinophil Count 0.44 10^3/uL (0.0-0.7); Absolute Lymphocyte Count 2.49 10^3/uL (1.2-3.4); Absolute Monocyte Count 0.67 10^3/uL (0.1-0.8); Absolute Neutrophil Count 6.52 10^3/uL (1.2-6.7); Basophils % 0.3; Eosinophils % 4.3; HCT 38.2 % (36.0-46.0); HGB 12.6 g/dL (11.2-15.7); Immature Grans % 0.3; Lymphocytes % 24.5; MCH 29.6 pg (27.0-33.0); MCV 90 fL (80-95); Monocytes % 6.6; Platelet Count 258 10^3/uL (130-400); RBC 4.25 10^6/uL (3.93-5.22); RDW 12.9 % (11.7-14.6); RDW-SD 42.2 fL; WBC 10.18 10^3/uL (4.4-10.8)
[2022-04-05] MEDS: Aspirin 81 MG CHEW 324 MG CH (22:54)
[2022-04-05 22:58] LABS: PTT Activated 24.5 sec (21.0-27.5); Prothrombin Time 9.6 sec (9.3-11.0)
[2022-04-05 23:03] LABS: ALT 19 U/L (14-59); AST 12 U/L (15-37); Albumin 3.9 g/dL (3.4-5.0); Alkaline Phosphatase 72 U/L (46-116); Anion Gap 7.4 mmol/L (3-11); BUN 20 mg/dL (7-18); Bilirubin, Total 1.2 mg/dL (0.2-1.0); CO2 30.6 mmol/L (21.0-32.0); Calcium 9.3 mg/dL (8.5-10.1); Chloride 103 mmol/L (98-107); Estimated GFR 54.81 (mL/min/1.73m2); Glucose 98 mg/dL (74-106); Lipase 125 U/L (73-393); Potassium 3.1 mmol/L (3.5-5.1); Sodium 141 mmol/L (136-145); Total Protein 7.3 g/dL (6.4-8.2); Troponin I < 50 ng/L (<or=60)
[2022-04-05 23:13] LABS: D-Dimer 409 ng/mlFEU (<500)
[2022-04-05] MEDS: Potassium Chloride 20 MEQ TABCR 40 MEQ PO (23:44)
[2022-04-05 23:55] VITALS: BP 152/86; PULSE 85; RESP 16; O2SAT 94
[2022-04-06] VITALS (12 sets, daily range): BP systolic 133–152; BP diastolic 70–87; PULSE 71–87; RESP 15–19; TEMP 36.7; O2SAT 94–96
--- NOTE | 2022-04-06 00:33 | ED.PROG_ITS ---
Date of service: 04/06/22 Time of Service: 00:33 Medical Decision Making Patient signed out to me pending repeat troponin and EKG. CXR no acute process. She had presented with 2-day history of epigastric pain radiating to her back. Initial work-up and evaluation per SAVANNAH Moctezuma. Patient asymptomatic here. R epeat EKG and troponin unchanged. EDACS score places her at low risk and patient referred to primary care for follow-up and consideration of outpatient stress testing. Return precautions provided. Lab Data Lab results reviewed: Yes I reviewed the patient's lab results. ECG Data Attestation: I personally reviewed and interpreted this ECG (s) as follows: Prior ECG tracings: available for review Interpretation: see EKG - no change Sign Out Sign Out Data: Sign Out Comment: Chest indigestion and upper back that began yesterday. Initial work-up including troponin and D-dimer unremarkable. Patient received full dose aspirin and a GI cocktail, is asymptomatic. No history of cardiac disease. Never had a stress test or echocardiogram. Awaiting delta troponin, chest x-ray, reevaluation. Last updated by Hugo Moctezuma PA at 04/05/22 23:27 Discharge Plan Disposition Patient Disposition: HOME Condition: Good Discharge Details Clinical Impression: Epigastric pain, Upper back pain Primary Care Provider: Kae Bliss ED Provider: Lul Sihne Home Meds and New Rx's Prescriptions: Continued amlodipine 5 mg tablet 5 mg PO DAILY Qty: 90 3RF losartan-hydrochlorothiazide [Hyzaar] 100-25 mg tablet 1 tab PO DAILY Qty: 90 4RF potassium chloride 20 mEq tablet,ER particles/crystals 20 meq PO DAILY Qty: 90 3RF simvastatin 10 mg tablet 10 mg PO DAILY Qty: 90 3RF famotidine 40 mg tablet 40 mg PO QHS Qty: 90 3RF No Action diphenoxylate-atropine [Lomotil] 2.5-0.025 mg tablet 1 tab PO Q6H PRN PRN (Reason: diarrhea) Qty: 20 0RF bupropion HCl [Wellbutrin XL] 150 mg tablet extended release 24 hr 150 mg PO QAM Qty: 90 3RF Hold Instructions: winter use only hydrocortisone valerate 0.2 % ointment 1 applic topical BID PRN (Reason: skin irritation) Qty: 45 0RF Discharge Instructions Instructions: Back Pain (ED), Epigastric Pain (ED) Additional Instructions: You were seen in the ED for epigastric pain and upper back pain. Your chest x- ray, EKGs, laboratory studies are all reassuring. You will need follow-up with primary care this week and should call today for appointment. This does not seem to be cardiac but outpatient stress testing may be considered to help rule out cardiac disease. You should return to ED for new or worsening chest pain, shortness of breath, fever, other concerns Discharge Data Discharge Date/Time-TO BE ENTERED AT DEPARTURE: 04/06/22 02:44
--- NOTE | 2022-04-06 00:55 | DI.VRAD_ITS ---
PROCEDURE INFORMATION: Exam: XR Chest Exam date and time: 04/05/2022 11:50 PM Age: 71 years old Clinical indication: Patient HX: Chest pain for 2 days TECHNIQUE: Imaging protocol: XR of the chest. Views: 2 views. COMPARISON: CT RENAL COLIC WO CONTRAST 04/14/2017 1:17 AM FINDINGS: Lungs: Lungs are adequately inflated. No focal consolidation or pulmonary edema. Pleural spaces: No pleural effusion. No pneumothorax. Heart/Mediastinum: Cardiomediastinal contours within normal limits. Diaphragm: Slight asymmetric elevation of the right hemidiaphragm. Bones/joints: Decreased osseous mineralization suggestive for osteopenia. Mild thoracic spondylosis. No acute osseous findings. IMPRESSION: No acute findings. Dictated and Authenticated by: Asher Crowe MD. Ordering:GERMAN Arias MD
[2022-04-06 01:58] LABS: Troponin I < 50 ng/L (<or=60)
--- NOTE | 2022-04-06 02:15 | RT.EKG_ITS ---
APPROVED REPORT Exam: Resting ECG Reason for Exam: Chest pain Patient Location: E HR:86 bpm ECG Measurements Heart Rate 86 AXIS SD 185 P 51 QRSd 93 QRS 0 QT 394 T 38 QTc 467 Conclusion Sinus rhythm...normal P axis, V-rate 60- 99 Atrial premature complex...SV complex w/ short R-R interval There are no significant changes compared to prior EKG performed on 04/05/2022 at 22:26.
== END 2022-04-06 02:44 | disposition home or self-care (01) ==
PROVIDERS: Physician Assistant; Emergency Provider Emergency Medicine; PCP Family Medicine
DX: R10.13 Epigastric pain (principal); R07.89 Other chest pain; M54.89 Other dorsalgia; E87.6 Hypokalemia
CPT/HCPCS: 36415; 80053; 83690; 93005; 99284; 71046; 83735; 84484; 85025; 85379; 85610; 85730; 93010

== ENCOUNTER 2022-10-14 02:14 | Outpatient (CLI) | payer MEDICARE, BC, SELFPAY ==
[2022-10-14 12:25] LABS: Anion Gap 8.7 mmol/L (3-11); BUN 20 mg/dL (7-18); CO2 28.3 mmol/L (21.0-32.0); CREATININE 1.3 mg/dL (0.55-1.02); Chloride 101 mmol/L (98-107); Estimated GFR 43.96 (mL/min/1.73m2); Glucose 87 mg/dL (74-106); Potassium 3.3 mmol/L (3.5-5.1); Sodium 138 mmol/L (136-145)
== END 2022-10-14 02:15 | disposition home or self-care (01) ==
LOC: LBO 02:14
PROVIDERS: PCP Family Medicine; Visit Provider Family Medicine
DX: I10 Essential (primary) hypertension (principal)
CPT/HCPCS: 36415; 80048

== ENCOUNTER 2022-10-30 00:08 | Outpatient (CLI) | payer MEDICARE, BC, SELFPAY ==
--- NOTE | 2022-10-30 08:15 | DI.MAMMO_ITS ---
Exam(s) MAMMO SCREENING EXAM: MAMMO SCREENING CLINICAL HISTORY: screening,Z12.39 TECHNIQUE: Mammograms were interpreted according to the usual protocol including computer analysis w [employer] Interactive CAD system, tomosynthesis and C-view imaging. COMPARISON: 2013 through 2019 FINDINGS: The breasts are composed of mainly fatty density , Breast Density category A. No suspicious masses or suspicious microcalcifications are seen. No skin thickening or abnormal axillary lymph nodes are seen. There has been no significant change from prior exams. IMPRESSION: BI-RADS Category 1, Negative mammogram Yearly screening mammography is recommended. Breast Density - Category A, fatty density. A negative radiographic report should not delay biopsy if a dominant or clinically suspicious mass is present. Up to ten percent of cancers are not identified on mammography. A negative report may reinforce clinical impression. Adenosis and dense breasts may obscure an underlying neoplasm. False positive reports average 6 to 10%. Patient will receive a letter notifying them of these results.
--- NOTE | 2022-10-30 14:24 | DI.DEXA_ITS ---
Exam(s) XR DEXA BONE DENSITY W/WO AYO EXAM: XR DEXA BONE DENSITY W/WO AYO CLINICAL HISTORY: screening FOR OSTEOPOROSIS, Z78.0 TECHNIQUE: Zoomy C densitometer analysis of left hip, lumbar spine and left forearm. COMPARISON: No exams were available for comparison FINDINGS: Lateral view of the thoracic and lumbar spine shows no evidence of compression fractures. Bone mineral density measurements of the lumbar spine correspond to a total T-score of 0.5, in the n ormal range. Bone mineral density measurements of the left hip correspond to a total T-score of -1.1. The femora l neck T-score is -1.0, in the mildly osteopenic range. . The left forearm bone mineral density measurements correspond to a T-score of the distal 3rd of -1.2 , in the mildly osteopenic range. IMPRESSION: Normal bone mineral density of the lumbar spine. Mild osteopenia of the left hip and left forearm.
== END 2022-10-30 00:28 ==
LOC: DI 00:09
PROVIDERS: PCP Family Medicine; Visit Provider Family Medicine
DX: Z12.31 Encounter for screening mammogram for malignant neoplasm of breast (principal); N95.8 Other specified menopausal and perimenopausal disorders; M85.88 Other specified disorders of bone density and structure, other site
CPT/HCPCS: 77063; 77067; 77080

== ENCOUNTER 2022-12-02 04:21 | Outpatient (CLI) | payer MEDICARE, BC, SELFPAY ==
[2022-12-02 15:04] LABS: Anion Gap 8.4 mmol/L (3-11); BUN 12 mg/dL (7-18); CO2 29.6 mmol/L (21.0-32.0); CREATININE 1.2 mg/dL (0.55-1.02); Chloride 104 mmol/L (98-107); Estimated GFR 48.39 (mL/min/1.73m2); Glucose 96 mg/dL (74-106); Potassium 4.2 mmol/L (3.5-5.1); Sodium 142 mmol/L (136-145)
== END 2022-12-02 04:22 | disposition home or self-care (01) ==
PROVIDERS: PCP Family Medicine; Visit Provider Family Medicine
DX: I10 Essential (primary) hypertension (principal)
CPT/HCPCS: 36415; 80048; 83735

== ENCOUNTER 2023-12-01 02:39 | Outpatient (CLI) | payer MEDICARE, BC, SELFPAY ==
[2023-12-01 12:39] LABS: ALT 18 U/L (14-59); AST 11 U/L (15-37); Albumin 3.9 g/dL (3.4-5.0); Alkaline Phosphatase 73 U/L (46-116); Anion Gap 8.7 mmol/L (3-11); BUN 18 mg/dL (7-18); Bilirubin, Total 1.8 mg/dL (0.2-1.0); CO2 29.3 mmol/L (21.0-32.0); CREATININE 1.3 mg/dL (0.55-1.02); Calcium 9.1 mg/dL (8.5-10.1); Chloride 103 mmol/L (98-107); Estimated GFR 43.69 (mL/min/1.73m2); Glucose 95 mg/dL (74-106); Sodium 141 mmol/L (136-145); Total Protein 7.4 g/dL (6.4-8.2)
[2023-12-01 13:42] LABS: Calculated LDL 91 mg/dL (<100); Cholesterol 183 mg/dL (<200); HDL Cholesterol 51 mg/dL (40-60); Triglyceride 205 mg/dL (<150)
== END 2023-12-01 02:40 | disposition home or self-care (01) ==
LOC: LOS 02:39
PROVIDERS: PCP Family Medicine; Visit Provider Family Medicine
DX: I10 Essential (primary) hypertension (principal); Z00.00 Encounter for general adult medical examination without abnormal findings; E78.00 Pure hypercholesterolemia, unspecified; Z13.6 Encounter for screening for cardiovascular disorders
CPT/HCPCS: 36415; 80053; 80061

== ENCOUNTER 2024-10-06 00:57 | Outpatient (CLI) | payer MEDICARE, BC, SELFPAY ==
--- NOTE | 2024-10-06 08:15 | DI.MAMMO_ITS ---
Exam(s) MAMMO SCREENING EXAM: MAMMO SCREENING CLINICAL HISTORY: screening,z12.39. TECHNIQUE: Bilateral full field digital CC and MLO mammographic images were obtained with 3D tomosyn thesis and utilizing computer aided detection (CAD). COMPARISON: Prior mammograms were reviewed. FINDINGS: Plantar pattern is again noted be predominately fatty in both breasts. Full skin moles are again noted. No new left breast findings. Small benign-appearing nodule at approximately 6 o'clock position of the right breast is unchanged fr om prior mammograms. Small benign-appearing nodule at approximately 6 o'clock position of the opposite-left breast is also unchanged. There are no new spiculated nodules in either breast and no malignant-appearing microcalcification gr oups. There is no significant architectural distortion nor skin thickening-retraction. IMPRESSION: Stable benign-appearing findings. No radiographic evidence of malignancy. BI-RADS Category 1 - Negative Breast Density - Category A - Almost entirely fatty Breast density Category C or D implies that the patient has dense breast tissue. Dense breast tissue can make it harder to find cancer on a mammogram. Dense breast tissue is also associated with an incr eased risk of breast cancer. This information about the result of the mammogram report was provided to the patient to raise their awareness. Use this report when you speak with the patient about their risks for breast cancer, which includes their family history. At that time, you may recommend additional screening tests (Ultrasoun d or MRI) as these tests may add significant information. A negative radiographic report should not delay biopsy if a dominant or clinically suspicious mass is present. Up to ten percent of cancers are not identified on mammography. A negative report may reinforce clinical impression. Adenosis and dense breasts may obscure an underlying neoplasm. False positive reports average 6 to 10%. Patient will receive a letter notifying them of these results.
== END 2024-10-06 01:17 ==
LOC: DI 00:58
PROVIDERS: PCP Family Medicine; Visit Provider Family Medicine
DX: Z12.31 Encounter for screening mammogram for malignant neoplasm of breast (principal); I10 Essential (primary) hypertension; R92.313 Mammographic fatty tissue density, bilateral breasts
CPT/HCPCS: 77063; 77067

== ENCOUNTER 2024-10-06 01:10 | Outpatient (CLI) | payer MEDICARE, BC, SELFPAY ==
[2024-10-06 16:29] LABS: Anion Gap 10.4 mmol/L (3-11); BUN 15 mg/dL (7-18); CO2 27.6 mmol/L (21.0-32.0); CREATININE 1.2 mg/dL (0.55-1.02); Calcium 8.9 mg/dL (8.5-10.1); Calculated LDL 83 mg/dL (<100); Chloride 106 mmol/L (98-107); Cholesterol 195 mg/dL (<200); Glucose 109 mg/dL (74-106); HDL Cholesterol 51 mg/dL (40-60); Potassium 3.7 mmol/L (3.5-5.1); Sodium 144 mmol/L (136-145); Triglyceride 309 mg/dL (<150)
== END 2024-10-06 01:11 | disposition home or self-care (01) ==
LOC: LBO 01:10
PROVIDERS: PCP Family Medicine; Visit Provider Family Medicine
DX: Z13.1 Encounter for screening for diabetes mellitus (principal); I10 Essential (primary) hypertension; Z13.6 Encounter for screening for cardiovascular disorders
CPT/HCPCS: 36415; 80048; 80061

== ENCOUNTER 2025-10-02 01:30 | Outpatient (CLI) | payer MEDICARE, BC, SELFPAY ==
[2025-10-02 15:28] LABS: ALT 13 U/L (10-49); AST 17 U/L (<34); Albumin 4.5 g/dL (3.2-5.0); Alkaline Phosphatase 76 U/L (46-116); Anion Gap 12 mmol/L (3-11); BUN 23 mg/dL (9-23); Bilirubin, Total 1.6 mg/dL (0.2-1.2); CO2 26.0 mmol/L (20.0-31.0); Calcium 9.6 mg/dL (8.3-10.6); Chloride 108 mmol/L (98-107); Cholesterol 190 mg/dL (<200); Glucose 97 mg/dL (74-106); HDL Cholesterol 53 mg/dL (>40); Potassium 4.2 mmol/L (3.5-5.1); Sodium 146 mmol/L (136-145); Total Protein 7.1 g/dL (5.7-8.2)
== END 2025-10-02 01:31 | disposition home or self-care (01) ==
LOC: LBO 01:32
PROVIDERS: PCP Family Medicine; Visit Provider Family Medicine
DX: Z13.6 Encounter for screening for cardiovascular disorders (principal); E78.00 Pure hypercholesterolemia, unspecified; I10 Essential (primary) hypertension
CPT/HCPCS: 36415; 80053; 80061